=== PATIENT | male | born 1980 | race Caucasian/White ===

== ENCOUNTER → 2017-08-12 16:32 | Emergency (ER) | payer SELFPAY ==
[~2017-08-12 16:32] MED LIST: Potassium Chlor TAB* 20 MEQ TAB.ER PO ONE; Sulfamethox/Trimethoprim DS 800/160* TAB PO ONE
[2017-08-12 20:07] LABS: Hematocrit 42 % (42-52); Hemoglobin 14.9 g/dl (14.0-18.0); Mean Corpuscular HGB Conc 35 g/dl (31-36); Mean Corpuscular Hemoglobin 32 pg (27-31); Mean Corpuscular Volume 92 fL (80-94); Mean Platelet Volume 8 um3 (7.4-10.4); Red Cell Distribution Width 15 % (10.5-15); White Blood Count 13.4 10^3/ul (3.5-10.8)
[2017-08-12 20:24] LABS: Albumin 3.8 g/dL (3.2-5.2); BUN/Creatinine Ratio 14.9 (8-20); Calcium 9.1 mg/dL (8.6-10.3); EGFR Non-African American 98.7 (>60); Globulin 3.6 g/dL (2-4); Potassium 3.3 mmol/L (3.5-5.0); Total Bilirubin 0.6 mg/dL (0.2-1.0); Total Protein 7.4 g/dL (6.4-8.9)
--- NOTE | 2017-08-12 20:47 | RAD ---
HISTORY: Right greater than left lower leg edema TECHNIQUE: Multiple transverse and longitudinal ultrasound images were obtained of the veins of the bilateral lower extremities using grayscale, color Doppler, and spectral Doppler imaging with and without compression and with augmentation. FINDINGS: VEINS: The common femoral vein, deep femoral vein, femoral vein and popliteal vein are compressible throughout their course, with normal flow on color Doppler imaging and normal response to augmentation on spectral Doppler imaging. SOFT TISSUES: Grossly normal. No large popliteal fossa cyst was identified. IMPRESSION: No sonographic evidence of deep vein thrombosis.
[2017-08-12 21:34] VITALS: BP 141/71
--- NOTE | 2017-08-29 22:45 | ED ---
Jorje Champagne Angela, scribed for Robert Pendleton MD on 08/12/17 at 1912 . Lower Extremity - HPI Summary HPI Summary: This pt is a 37 y/o male presenting to [facility] c/o bilateral lower extremity edema and pain x3 weeks. Pt reports he was at his PCP's office and was told to come to the ED. Pt is a current smoker. PMHx: COPD, HTN. He states he had an US of LE done recently. Pt's US results from 08/02/2017 is negative for DVT. PSHx: right knee surgery (12 years ago). - History of Current Complaint Chief Complaint: EDExtremityLower Stated Complaint: BOTH LEGS SWOLLEN Time Seen by Provider: 08/12/17 19:07 Hx Obtained From: Patient Onset of Pain: Days - 3 weeks Onset/Duration: Weeks - 3 Pain Intensity: 8 Timing: Lasting Weeks Location: Is Discrete @ - bilateral legs Associated Signs And Symptoms: Positive: Swelling, Redness - Allergies/Home Medications Allergies/Adverse Reactions: Allergies Allergy/AdvReac Type Severity Reaction Status Date / Time PCN Allergy Unknown Unknown Uncoded 08/12/17 16:38 Reaction Details PMH/Surg Hx/FS Hx/Imm Hx Endocrine/Hematology History: Denies: Hx Diabetes Cardiovascular History: Reports: Hx Hypertension Denies: Hx Pacemaker/ICD Respiratory History: Reports: Hx Chronic Obstructive Pulmonary Disease (COPD) Sensory History: Denies: Hx Hearing Aid Neurological History: Denies: Other Neuro Impairments/Disorders Psychiatric History: Denies: Hx Panic Disorder - Surgical History Surgery Procedure, Year, and Place: RIGHT KNEE ACL RECONSTRUCTION . TONSILS. EAR TUBES Infectious Disease History: No Infectious Disease History: Denies: Traveled Outside the [place] in Last 30 Days - Family History Known Family History: Negative: Cardiac Disease, Hypertension, Diabetes - Social History Alcohol Use: None Hx Substance Use: No Substance Use Type: Reports: None Smoking Status (MU): Current Every Day Smoker Review of Systems Negative: Fever, Chills Eyes: Negative ENT: Negative Cardiovascular: Negative Respiratory: Negative Positive: Edema - bilateral legs, Other - pain in bilateral legs Neurological: Negative All Other Systems Reviewed And Are Negative: Yes Physical Exam Triage Information Reviewed: Yes Vital Signs On Initial Exam: Initial Vitals Temp Pulse Resp BP Pulse Ox 97.6 F 114 18 128/68 96 08/12/17 16:34 10/06/17 16:34 08/12/17 16:34 08/12/17 16:34 08/12/17 16:34 Vital Signs Reviewed: Yes Appearance: Positive: Well-Appearing, Obese Skin: Positive: Other - cellulitis both lower extremities Eyes: Positive: EOMI ENT: Positive: Pharynx normal Neck: Positive: Supple, Nontender Respiratory/Lung Sounds: Positive: Clear to Auscultation, Breath Sounds Present Cardiovascular: Positive: RRR, Pulses are Symmetrical in both Upper and Lower Extremities. Negative: Murmur Abdomen Description: Positive: Other: - obese Musculoskeletal: Positive: Edema Left - lower extremity, Edema Right - lower extremity Neurological: Positive: Sensory/Motor Intact, Alert, Oriented to Person Place, Time, CN Intact II-III Psychiatric: Positive: Normal - [place] Coma Scale Best Eye Response: 4 - Spontaneous Best Motor Response: 6 - Obeys Commands Best Verbal Response: 5 - Oriented Diagnostics - Vital Signs Vital Signs Temp Pulse Resp BP Pulse Ox 08/12/17 18:14 97.9 F 112 16 112/59 96 08/12/17 16:34 97.6 F 114 18 128/68 96 - Laboratory Result Diagrams: 08/12/17 19:52 08/12/17 19:52 Lab Statement: Any lab studies that have been ordered have been reviewed, and results considered in the medical decision making process. - Ultrasound No standard instances Ultrasound Interpretation: No Acute Changes Ultrasound Interpretation Completed By: Radiologist - Bilateral LE US: Pending official interpretation from radiologist. See [facility]. Lower Extremity Course/Dx - Course Assessment/Plan: Pt is a 37 y/o male who presents with bilateral lower extremity edema and pain x3 weeks. Bloodwork and bilateral LE US were obtained. - Diagnoses Provider Diagnoses: Cellulitis Discharge - Discharge Plan Condition: Good Disposition: HOME Prescriptions: Sulfamethox/Trimethoprim DS* [Bactrim DS 800/160 TAB*] 1 tab PO BID #20 tab Patient Education Materials: Cellulitis (ED), Leg Edema (ED) Referrals: Bharat Arias MD [Primary Care Provider] - 2 Days The documentation as recorded by the Jorje graf Angela accurately reflects the service I personally performed and the decisions made by , Robert Pendleton MD.
== END | disposition home or self-care (01) ==
LOC: ED 16:32
DX: L03.90 Cellulitis, unspecified (principal); R22.43 Localized swelling, mass and lump, lower limb, bilateral
CPT/HCPCS: 36415; 80053; 83605; 85025; 85610; 87040; 93970; 99282; A9270-GY

== ENCOUNTER 2017-11-21 21:44 | Emergency (ER) | payer OTHER ==
[2017-11-21] MEDS ORDERED: NS 0.9% 1000 ML* 1,000 ML IV ONE (22:07)
[2017-11-21] MEDS ORDERED: Ondansetron INJ* 2 MG/ML VIAL IV ONE (22:10)
[2017-11-21] MEDS ORDERED: Meclizine TAB* 12.5 MG PO ONE (22:10)
[2017-11-21 22:54] LABS: ABS Basophils 0.1 10^3/ul (0-0.2); ABS Eosinophils 0.1 10^3/ul (0-0.6); ABS Lymphocytes 1.6 10^3/ul (1.0-4.8); ABS Monocytes 0.8 10^3/ul (0-0.8); ABS Neutrophils 9.4 10^3/ul (1.5-7.7); ABS Nucleated RBC 0 10^3/ul; Eosinophil % 0.7 % (0-6); Hematocrit 44 % (42-52); Hemoglobin 14.9 g/dl (14.0-18.0); Lymphocyte % 13.2 % (25-47); Mean Corpuscular HGB Conc 34 g/dl (31-36); Mean Corpuscular Hemoglobin 31 pg (27-31); Mean Corpuscular Volume 91 fL (80-94); Mean Platelet Volume 8 um3 (7.4-10.4); Nucleated Red Blood Cells % 0; Platelet Count 306 10^3/ul (150-450); Red Blood Count 4.78 10^6/ul (4.0-5.4); Red Cell Distribution Width 15 % (10.5-15)
--- NOTE | 2017-11-21 23:01 | RAD ---
INDICATION: Dizziness COMPARISON: None. TECHNIQUE: Contiguous axial sections of the brain were obtained from the skull base to the vertex without contrast. FINDINGS: The ventricles, cisterns and sulci are within normal limits. The lpoez-white matter differentiation is adequately maintained and there is no sulcal effacement. No significant focal abnormality or mass effect is present. There is no evidence for intracranial hemorrhage. No significant focal osseous abnormality is present. The visualized portion of the paranasal sinuses appear clear. The mastoid air cells are well aerated bilaterally. IMPRESSION: Normal CT of the brain.
[2017-11-21 23:02] LABS: INR 0.95 (0.77-1.02)
[2017-11-21 23:12] LABS: EGFR Non-African American 93.7 (>60)
[2017-11-22] VITALS: BP 139/71
--- NOTE | 2017-11-22 06:02 | ED ---
Stefania Champagne Nilda, scribed for Silvino Hunter MD on 11/21/17 at 2209 . Dizziness - HPI Summary HPI Summary: This patient is a 37 year old M BIBA accompanied by family with a chief complaint of constant dizziness since earlier today. Pt was at rest when symptoms occurred. Symptoms aggravated by movement and alleviated by rest. Patient reports lightheadedness (room-spinning), near syncope, chills, blurry vision, mild SOB, and nausea. Patient denies fever. Pt is on medications for COPD (inhaler) and HTN (Lorsartan, currently non-compliant due to billing issues). - History Of Current Complaint Chief Complaint: EDShortnessOfBreath Stated Complaint: SOB Time Seen by Provider: 11/21/17 21:57 Hx Obtained From: Patient Onset/Duration: Still Present Timing: Constant Character: Room Spinning, Lightheaded, Dizzy Aggravating Factor(s): Exertion Alleviating Factor(s): Rest Associated Signs And Symptoms: Positive: Other: - Patient reports lightheadedness (room-spinning), near syncope, chills, blurry vision, mild SOB, and nausea. Patient denies fever. - Allergies/Home Medications Allergies/Adverse Reactions: Allergies Allergy/AdvReac Type Severity Reaction Status Date / Time PCN Allergy Unknown Unknown Uncoded 08/12/17 16:38 Reaction Details PMH/Surg Hx/FS Hx/Imm Hx Endocrine/Hematology History: Denies: Hx Diabetes Cardiovascular History: Reports: Hx Hypertension Denies: Hx Pacemaker/ICD Respiratory History: Reports: Hx Chronic Obstructive Pulmonary Disease (COPD) Sensory History: Denies: Hx Hearing Aid Neurological History: Denies: Other Neuro Impairments/Disorders Psychiatric History: Denies: Hx Panic Disorder - Surgical History Surgery Procedure, Year, and Place: RIGHT KNEE ACL RECONSTRUCTION . TONSILS. EAR TUBES - Family History Known Family History: Positive: Cardiac Disease, Hypertension, Other - HLD Negative: Diabetes - Social History Alcohol Use: None Hx Substance Use: No Substance Use Type: Reports: None Smoking Status (MU): Current Every Day Smoker Review of Systems Positive: Chills. Negative: Fever Positive: Blurred Vision Positive: Shortness Of Breath Positive: Nausea Neurological: Other - dizziness, lightheaded (room spinning) Positive: Syncope - near All Other Systems Reviewed And Are Negative: Yes Physical Exam - Summary Physical Exam Summary: VITAL SIGNS: Reviewed. GENERAL: Patient is a morbidly obese male who is lying comfortable in the stretcher. Patient is not in any acute respiratory distress. HEAD AND FACE: No signs of trauma. No ecchymosis, hematomas or skull depressions. No sinus tenderness. EYES: PERRLA, EOMI x 2, No injected conjunctiva, no nystagmus. EARS: Hearing grossly intact. Ear canals and tympanic membranes are within normal limits. MOUTH: Oropharynx within normal limits. NECK: Supple, trachea is midline, no adenopathy, no JVD, no carotid bruit, no c- spine tenderness, neck with full ROM. CHEST: Symmetric, no tenderness at palpation LUNGS: Clear to auscultation bilaterally. No wheezing or crackles. CVS: Regular rate and rhythm, S1 and S2 present, no murmurs or gallops appreciated. ABDOMEN: Soft, non-tender. No signs of distention. No rebound no guarding, and no masses palpated. Bowel sounds are normal. EXTREMITIES: FROM in all major joints, no edema, no cyanosis or clubbing. NEURO: Alert and oriented x 3. No acute neurological deficits. Speech is normal and follows commands. Pt has normal coordination, no dysmetria SKIN: Dry and warm Triage Information Reviewed: Yes Vital Signs On Initial Exam: Initial Vitals Temp Pulse Resp BP Pulse Ox 98.7 F 106 20 145/78 95 11/21/17 22:08 11/21/17 22:08 11/21/17 22:08 11/21/17 22:08 11/21/17 22:08 Vital Signs Reviewed: Yes Diagnostics - Vital Signs Vital Signs Temp Pulse Resp BP Pulse Ox 11/21/17 23:57 36.7 C 96 18 139/71 96 11/21/17 23:00 96 23 92 11/21/17 22:52 95 11/21/17 22:08 37.1 C 106 20 145/78 95 11/21/17 22:03 24 145/78 - Laboratory Lab Results: Lab Results 11/21/17 11/21/17 11/21/17 Range/Units 22:40 22:40 22:40 WBC 12.0 H (3.5-10.8) 10^3/ul RBC 4.78 (4.0-5.4) 10^6/ul Hgb 14.9 (14.0-18.0) g/dl Hct 44 (42-52) % MCV 91 (80-94) fL MCH 31 (27-31) pg MCHC 34 (31-36) g/dl RDW 15 (10.5-15) % Plt Count 306 (150-450) 10^3/ul MPV 8 (7.4-10.4) um3 Neut % (Auto) 78.4 (38-83) % Lymph % (Auto) 13.2 L (25-47) % Desha % (Auto) 6.6 (1-9) % Eos % (Auto) 0.7 (0-6) % Baso % (Auto) 1.1 (0-2) % Absolute Neuts (auto) 9.4 H (1.5-7.7) 10^3/ul Absolute Lymphs (auto) 1.6 (1.0-4.8) 10^3/ul Absolute Monos (auto) 0.8 (0-0.8) 10^3/ul Absolute Eos (auto) 0.1 (0-0.6) 10^3/ul Absolute Basos (auto) 0.1 (0-0.2) 10^3/ul Absolute Nucleated RBC 0 10^3/ul Nucleated RBC % 0 INR (Anticoag Therapy) 0.95 (0.77-1.02) APTT 30.2 (26.0-36.3) seconds Sodium 134 (133-145) mmol/L Potassium 3.8 (3.5-5.0) mmol/L Chloride 100 L (101-111) mmol/L Carbon Dioxide 28 (22-32) mmol/L Anion Gap 6 (2-11) mmol/L BUN 9 (6-24) mg/dL Creatinine 0.91 (0.67-1.17) mg/dL Est GFR ( Amer) 120.6 (>60) Est GFR (Non-Af Amer) 93.7 (>60) BUN/Creatinine Ratio 9.9 (8-20) Glucose 145 H (70-100) mg/dL Calcium 9.3 (8.6-10.3) mg/dL Magnesium 1.9 (1.9-2.7) mg/dL Total Bilirubin 0.60 (0.2-1.0) mg/dL AST 31 (13-39) U/L ALT 45 (7-52) U/L Alkaline Phosphatase 65 (34-104) U/L Total Protein 7.1 (6.4-8.9) g/dL Albumin 3.7 (3.2-5.2) g/dL Globulin 3.4 (2-4) g/dL Albumin/Globulin Ratio 1.1 (1-3) Result Diagrams: 11/21/17 22:40 11/21/17 22:40 Lab Statement: Any lab studies that have been ordered have been reviewed, and results considered in the medical decision making process. - CT Brain CT Interpretation Completed By: Radiologist - Normal CT Brain. Dr. Hunter has reviewed this report. - EKG 2234 Cardiac Rate: Other Rate EKG Interpretation: Sinus arrhythmia, 86 bpm. Nml axis. Nml interval. No ischemic changes. Re-Evaluation - Re-Evaluation First Eval Re-Evaluation Time: 23:35 Comment: Pt feels better. He is ambulating well, steady gait. Reviewed labs and imaging. Pt agreeable to D/C. Dizzy Course/Dx - Course Assessment/Plan: This patient is a 37 year old M BIBA accompanied by family with a chief complaint of constant dizziness and lightheadedness (room-spinning ) since earlier today. Pt feels better. Pt ambulated with no coordination issues , steady gait. Imaging was unremarkable and reviewed results with pt. Pt given prescription for Meclizine. Pt is stable and will be D/C with Dx of benign positional vertigo. - Diagnoses Provider Diagnoses: Benign positional vertigo Discharge - Discharge Plan Condition: Stable Disposition: HOME Prescriptions: Meclizine HCl [Meclizine 25] 25 mg PO TID PRN #20 tab PRN Reason: Dizziness Patient Education Materials: Vertigo (ED), Benign Paroxysmal Positional Vertigo (ED) Referrals: Bharat Arias MD [Primary Care Provider] - 3 Days Additional Instructions: RETURN TO EMERGENCY DEPARTMENT FOR CHANGING OR WORSENING SYMPTOMS The documentation as recorded by the Stefania graf Nilda accurately reflects the service I personally performed and the decisions made by Dale tejada Abdul, MD.
== END 2017-11-21 23:57 | disposition home or self-care (01) ==
LOC: ED 21:44
DX: H81.10 Benign paroxysmal vertigo, unspecified ear (principal); R06.02 Shortness of breath; R05 Cough; R68.83 Chills (without fever); H53.8 Other visual disturbances; R11.0 Nausea
CPT/HCPCS: 36415; 70450; 80053; 83735; 85025; 85610; 85730; 93005; 96374; 99283; A9270-GY; J2405

== ENCOUNTER 2018-02-24 11:29 | Emergency (ER) | payer OTHER ==
--- NOTE | 2018-02-24 12:42 | RAD ---
INDICATION: Left shoulder pain COMPARISON: None TECHNIQUE: Routine frontal, Y and axial views were obtained. FINDINGS: There is minor a.c. and glenohumeral osteoarthritis. There are no acute bony findings. The soft tissues are normal. IMPRESSION: MINOR A.C. AND GLENOHUMERAL OSTEOARTHRITIS
[2018-02-24 13:12] VITALS: BP 145/90
--- NOTE | 2018-02-24 14:08 | ED ---
Upper Extremity Pain - HPI Summary HPI Summary: Patient is an otherwise healthy 38-year-old male presenting to the ED with left shoulder pain 5 days. He states he did not injure the area to his knowledge. Pain is discretely located to the acromioclavicular joint and to the posterior shoulder with radiation down the posterior left upper extremity. Denies any numbness or tingling. Denies any color or temperature changes. He has never had anything like this before. He is left-hand dominant. 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 He has not tried to take anything [id number] for pain relief and has not used ice or heat. He denies any other complaints at this time. Range of motion is intact. - History of Current Complaint Chief Complaint: EDExtremityUpper Stated Complaint: LT SHOULDER PAIN-2 DAYS Time Seen by Provider: 02/24/18 11:41 Hx Obtained From: Patient Mechanism Of Injury: Unknown Onset/Duration: Started Days Ago Timing: Constant Severity Initially: Moderate Severity Currently: Moderate Pain Location: Arm Character: Aching Alleviating Factor(s): Nothing Associated Signs & Symptoms: Positive: Negative Related History: Dominant Hand Left - Risk Factors Non-Orthopedic Risk Factor: Negative DVT Risk Factors: Negative Septic Arthritis Risk Factor: Negative Compartment Syndrome Risk Factors: Pain - Allergies/Home Medications Allergies/Adverse Reactions: Allergies Allergy/AdvReac Type Severity Reaction Status Date / Time PCN Allergy Unknown Unknown Uncoded 02/24/18 11:37 Reaction Details Home Medications: Home Medications NK [No Home Medications Reported] 02/24/18 [History Confirmed 02/24/18] PMH/Surg Hx/FS Hx/Imm Hx Previously Healthy: Yes Endocrine/Hematology History: Denies: Hx Diabetes Cardiovascular History: Reports: Hx Hypertension - on meds Denies: Hx Pacemaker/ICD Respiratory History: Reports: Hx Chronic Obstructive Pulmonary Disease (COPD), Hx Sleep Apnea Denies: Other Respiratory Problems/Disorders Musculoskeletal History: Reports: Hx Arthritis - not diagnosed, Other Musculoskeletal History - spinal stenosis Sensory History: Denies: Hx Contacts or Glasses, Hx Hearing Aid Opthamlomology History: Denies: Hx Contacts or Glasses Neurological History: Reports: Hx Headaches - r/t htn, Other Neuro Impairments/ Disorders - spinal stenosis Psychiatric History: Denies: Hx Panic Disorder - Surgical History Surgery Procedure, Year, and Place: RIGHT KNEE ACL RECONSTRUCTION . TONSILS. EAR TUBES Hx Anesthesia Reactions: No - Immunization History Hx Pertussis Vaccination: No Immunizations Up to Date: Unable to Obtain/Confirm Infectious Disease History: No Infectious Disease History: Denies: Traveled Outside the [place] in Last 30 Days - Family History Known Family History: Positive: Cardiac Disease, Hypertension, Other - HLD Negative: Diabetes - Social History Occupation: Unemployed Lives: Alone Alcohol Use: None Hx Substance Use: No Substance Use Type: Reports: Marijuana Substance Use Comment - Amount & Last Used: at times Hx Tobacco Use: Yes Smoking Status (MU): Former Smoker Do You Chew or Dip Tobacco: No Amount Used/How Often: 1.5 packs a day for 15 yrs Have You Smoked in the Last Year: Yes Review of Systems Constitutional: Negative Negative: Fever, Chills, Fatigue, Skin Diaphoresis Negative: Photophobia, Blurred Vision Negative: Palpitations, Chest Pain Negative: Shortness Of Breath, Cough Negative: Abdominal Pain, Vomiting, Diarrhea, Nausea Genitourinary: Negative Positive: no symptoms reported, see HPI Positive: Arthralgia, Myalgia Skin: Negative Psychological: Normal All Other Systems Reviewed And Are Negative: Yes Physical Exam Triage Information Reviewed: Yes Vital Signs On Initial Exam: Initial Vitals Temp Pulse Resp BP Pulse Ox 98.2 F 109 20 159/114 96 02/24/18 11:38 02/24/18 11:38 02/24/18 11:38 02/24/18 11:38 02/24/18 11:38 Vital Signs Reviewed: Yes Appearance: Positive: Well-Appearing, Well-Nourished Skin: Positive: Warm, Skin Color Reflects Adequate Perfusion Head/Face: Positive: Normal Head/Face Inspection Eyes: Positive: EOMI, Conjunctiva Clear Neck: Positive: Supple, No Lymphadenopathy Respiratory/Lung Sounds: Positive: Clear to Auscultation, Breath Sounds Present Cardiovascular: Positive: RRR, Pulses are Symmetrical in both Upper and Lower Extremities Musculoskeletal: Positive: Pain @ - AC joint pain with movement, better with rest Neurological: Positive: Speech Normal Psychiatric: Positive: Affect/Mood Appropriate AVPU Assessment: Alert Diagnostics - Vital Signs Vital Signs Temp Pulse Resp BP Pulse Ox 02/24/18 13:09 97.5 F 96 18 145/90 98 02/24/18 11:38 98.2 F 109 20 159/114 96 - Laboratory Lab Statement: Any lab studies that have been ordered have been reviewed, and results considered in the medical decision making process. Course/Dx - Course Course Of Treatment: During the course of treatment, the patient's evaluated for left shoulder injury. Images of the left shoulder obtained which shows: FINDINGS: There is minor a.c. and glenohumeral osteoarthritis. There are no acute bony. findings. The soft tissues are normal. IMPRESSION: MINOR A.C. AND GLENOHUMERAL OSTEOARTHRITIS. Patient is made aware of these results. Due to no obvious - Diagnoses Provider Diagnoses: Tendinitis, Osteoarthritis, shoulder Discharge - Sign-Out/Discharge Documenting (check all that apply): Discharge - Discharge Plan Condition: Stable Disposition: HOME Patient Education Materials: Osteoarthritis (ED), Tendinitis (ED) Referrals: Bharat Arias MD [Primary Care Provider] - Additional Instructions: Please follow up with Dr. Ennis Moist heat to the area ibuprofen 600 mg 3 times daily Stretch the shoulder as much as possible - Billing Disposition and Condition Condition: STABLE Disposition: HOME
== END 2018-02-24 13:09 | disposition home or self-care (01) ==
LOC: ED 11:29
DX: M75.92 Shoulder lesion, unspecified, left shoulder (principal); I10 Essential (primary) hypertension; J44.9 Chronic obstructive pulmonary disease, unspecified; E78.5 Hyperlipidemia, unspecified; Z87.891 Personal history of nicotine dependence; M19.012 Primary osteoarthritis, left shoulder
CPT/HCPCS: 99281

== ENCOUNTER 2018-02-28 09:27 | Day surgery (SDC) | payer OTHER ==
--- NOTE | 2018-02-23 11:03 | HP ---
AMENDED REPORT NOW INCLUDES COSIGNER DESIGNATION - ESIGNED BEFORE ADJUSTMENT PREOPERATIVE HISTORY AND PHYSICAL: DATE OF ADMISSION/SURGERY: 02/28/18 DATE OF OFFICE VISIT/ENCOUNTER: 02/22/18 ATTENDING SURGEON: Vania Lynn MD * (DICTATED BY KERLINE EAGLE) PROCEDURE: Left wrist carpal tunnel release. CHIEF COMPLAINT: Bilateral hand numbness and tingling, left worse than right. HISTORY OF PRESENT ILLNESS: This is a 38-year-old male, who complains of symptoms including numbness, tingling, and pain in his bilateral hands that has been ongoing for over 5 years. He thinks it may even be over the past 10 years that he has had symptoms. Symptoms have been progressively worsening and bother him mostly during the day. On rare occasion he feels that the symptoms awaken him in the middle of the night. He has to shake his hand out to get the numbness and tingling to go away. He denies injury to either hand or wrist. He has tried some wrist bracing in the past, but has not been very helpful. He does not complain of any cervical spine pain. He did have a nerve conduction/ EMG performed, which showed bilateral carpal tunnel syndrome. He is interested in pursuing surgical intervention at this time and would like to proceed with a left wrist carpal tunnel release. He is likely going to then have a right wrist carpal tunnel release. PAST MEDICAL HISTORY: 1. Hypertension. 2. COPD/emphysema. 3. Spinal stenosis. 4. Obesity. 5. Sleep apnea, with CPAP. 6. Hard of hearing. PAST SURGICAL HISTORY: 1. Right knee ACL reconstruction in 1998. 2. Tonsillectomy and adenoidectomy in 1995. CURRENT MEDICATIONS: 1. Chlorthalidone 25 mg daily. 2. Clotrimazole 1% apply twice daily. 3. Dulera 200/5 mcg/act 2 puffs twice a day. 4. Losartan potassium 50 mg daily. 5. ProAir HFA 108 (90 base) mcg/act 2 puffs q.4 hours p.r.n. ALLERGIES: PENICILLIN causes hives. FAMILY MEDICAL HISTORY: Diabetes and heart disease. 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 He is a former smoker. He quit 3 months ago. Prior to that, he smoked a pack and half per day for 15 years. He does smoke marijuana on occasion and does not drink alcohol. REVIEW OF SYSTEMS: General: Positive for weakness and fatigue, negative for fevers, chills, or night sweats. No known anesthesia problems in the past. HEENT: Negative for headache, lightheadedness, or syncopal episodes. Integumentary: Negative for abrasion, lesions, or open wounds. Cardiothoracic: Positive for hypertension, negative for chest pain, palpitations, or edema. Pulmonary: Positive for shortness of breath with exertion. Negative for chronic cough. Positive for COPD. GI: Negative for nausea, vomiting, diarrhea , constipation, and GERD. : Negative for nocturia, urinary frequency, urgency, history of UTIs, or kidney problems. Musculoskeletal: Positive for current complaint. Positive for chronic back pain. Neurological: Negative for paresthesias, numbness, history of seizure, stroke, or epilepsy. Endocrine : Negative for diabetes and thyroid issues. Hematologic: Negative for easy bruising, anemia, excessive bleeding, history of DVT. Infectious Disease: Negative for history of MRSA, hepatitis C, HIV. PHYSICAL EXAMINATION GENERAL: Well-developed, well-nourished, 38-year-old male, in no acute distress. VITAL SIGNS: Height 5 feet 10 inches, weight 368 pounds, pulse rate 78, blood pressure 160/90. HEENT: Normocephalic, atraumatic. Pupils are equal, round, and reactive to light and accommodation. Extraocular movements are intact. Throat is clear. NECK: Supple. No palpable lymph nodes. PULMONARY: Lungs are clear to auscultation bilaterally. No wheezes, rales, or rhonchi. CARDIOVASCULAR: Regular rate and rhythm. S1, S2. No murmurs, rubs, or gallops. No edema. ABDOMEN: Positive bowel sounds. Soft and nontender. NEUROLOGIC: Alert and oriented x3. Cranial nerves II through XII are intact. MUSCULOSKELETAL: On exam of bilateral hands, there is no visible thenar wasting. He has mild weakness bilaterally with thumb abduction. He has a negative Tinel's sign at the carpal tunnel and at the ulnar nerve at the elbow. He has a positive Phalen's sign bilaterally. He has good range of motion of his wrists and fingers and skin is intact. DIAGNOSTIC STUDIES: EMG/nerve conduction study shows bilateral incipient carpal tunnel syndrome. PLAN: The patient is scheduled to undergo left wrist carpal tunnel release with Dr. Lynn on 02/28/18. He will follow up 10 days postop for suture removal. A prescription for Ultracet e-scribed to the patient's pharmacy for postoperative pain management. KERLINE EAGLE [id number]/[facility] #: [id number] MTDDomenic
[~2018-02-28 09:27] MED LIST changes: +Buffered Lidocaine 0.9% SYRIN* 5 ML/SYR SYRINGE INTRADERM ONE; -Potassium Chlor TAB* 20 MEQ TAB.ER PO ONE; -Sulfamethox/Trimethoprim DS 800/160* TAB PO ONE
[2018-02-28] MEDS ORDERED: Midazolam* 1 MG/ML 2 ML VIAL (2 MG) ONE (10:01)
[2018-02-28] MEDS ORDERED: Acetaminophen TAB* 325 MG PO PRN (10:08)
[2018-02-28] MEDS ORDERED: Naloxone* 0.4 MG/ML 1 ML VIAL IV PRN (10:08)
[2018-02-28] MEDS ORDERED: Ondansetron INJ* 2 MG/ML VIAL IV PRN (10:08)
[2018-02-28] MEDS ORDERED: Lidocaine 1% INJ* 10 MG/ML 30 ML SDV ONE (10:31)
[2018-02-28] MEDS ORDERED: Lidocaine 2% PF * 5 ML VIAL ONE (10:43)
[2018-02-28] MEDS ORDERED: Propofol* 10 MG/ML 20 ML BTL IV PUSH ONE (10:43)
[2018-02-28] MEDS ORDERED: Ketorolac INJ* 30 MG/ML 1 ML VIAL ONE (10:43)
[2018-02-28 11:09] VITALS: BP 155/78
--- NOTE | 2018-02-28 12:23 | OP ---
CC: Dr. Lynn* OPERATIVE REPORT: DATE OF OPERATION: 02/28/18 - KAYCEE DATE OF : 80 SURGEON: Vania Lynn MD WELL TREATMENT OFFSIDER: KERLINE Yuen ANESTHESIOLOGIST: Garcia Castro MD ANESTHESIA: Local MAC. PRE-OP DIAGNOSIS: Left carpal tunnel syndrome. POST-OP DIAGNOSIS: Left carpal tunnel syndrome. OPERATIVE PROCEDURE: Left carpal tunnel release. INDICATIONS: eNil is a 38-year-old male with numbness and tingling in the median nerve distribution of his left hand. He presents for left carpal tunnel release. ESTIMATED BLOOD LOSS: Zero. TOURNIQUET TIME: Five minutes. DESCRIPTION OF PROCEDURE: The patient was brought to the operating room, was given a sedation anesthetic, and a local infiltration of 10 cc of 1% plain lidocaine in the palm of his left hand. The skin of his left hand and forearm was prepped and draped in the usual sterile fashion. The hand and forearm were exsanguinated and the tourniquet elevated to 250 mmHg. A longitudinal incision was made at the palm of the hand in line with the ring finger. We dissected through the subcutaneous tissue sharply down to the transverse carpal ligament. The ligament was divided sharply with the knife and then more proximally with the scissors. The nerve was dissected free from the surrounding tissue and there was an area of moderate compression in the mid portion of the ligament. The wound was irrigated and the skin edges were reapproximated with 4-0 nylon suture. The wound was dressed with Xeroform, 4x4, Webril, and an Sergey wrap. The patient tolerated the procedure well and was brought to the recovery room in good condition. [id number]/[facility] #: [id number] [facility]
== END 2018-02-28 11:42 | disposition home or self-care (01) ==
LOC: OREAST 09:27
PROVIDERS: ATTEND Orthopaedic Surgery
DX: G56.02 Carpal tunnel syndrome, left upper limb (principal); I10 Essential (primary) hypertension; J43.9 Emphysema, unspecified; G47.33 Obstructive sleep apnea (adult) (pediatric); E66.9 Obesity, unspecified; Z87.891 Personal history of nicotine dependence
CPT/HCPCS: J1885; J2250; J2704

== ENCOUNTER 2018-03-31 23:04 | Emergency (ER) | payer OTHER ==
[2018-04-01 01:07] LABS: ABS Basophils 0.1 10^3/ul (0-0.2); ABS Eosinophils 0 10^3/ul (0-0.6); ABS Lymphocytes 1.9 10^3/ul (1.0-4.8); ABS Monocytes 0.6 10^3/ul (0-0.8); ABS Neutrophils 8.8 10^3/ul (1.5-7.7); ABS Nucleated RBC 0 10^3/ul; Eosinophil % 0.4 % (0-6); Hematocrit 42 % (42-52); Hemoglobin 14.5 g/dl (14.0-18.0); Lymphocyte % 16.4 % (25-47); Mean Corpuscular HGB Conc 34 g/dl (31-36); Mean Corpuscular Hemoglobin 31 pg (27-31); Mean Corpuscular Volume 91 fL (80-94); Mean Platelet Volume 7.9 um3 (7.4-10.4); Nucleated Red Blood Cells % 0; Platelet Count 339 10^3/ul (150-450); Red Blood Count 4.69 10^6/ul (4.0-5.4); Red Cell Distribution Width 14 % (10.5-15); White Blood Count 11.5 10^3/ul (3.5-10.8)
[2018-04-01 01:23] LABS: INR 0.97 (0.77-1.02)
[2018-04-01 01:25] LABS: EGFR Non-African American 88.7 (>60)
[2018-04-01 02:26] LABS: Urine Appearance Clear; Urine Blood Negative (Negative); Urine Color Yellow; Urine Ketones Negative (Negative); Urine Protein Negative (Negative); Urine Specific Gravity 1.014 (1.010-1.030); Urine Urobilinogen Negative (Negative)
--- NOTE | 2018-04-01 03:07 | ED ---
HPI Chest Pain - HPI Summary HPI Summary: Patient presents with abrupt onset of sternal chest pain earlier this evening. He describes this as a brief sharp pain that led into chest tightness and throat tightness when he tried to drink water. He also admits he feels hot and sweaty as well as a little dizzy. Admits this is happened in the past and he was diagnosed with vertigo. He does not recall much of his follow-up he was given meclizine. He tried this [facility] and reports it is not helped his symptoms of dizziness at all. He also took an aspirin 325mg however he did not have CP at the time and continues to no longer have chest pain. Denies shortness of breath, nausea, vomiting, arm pain/numbness/ tingling. He also admits to an intermittent history of GERD but this does not feel the same. He does not take any routine antacid or PPI. He does have some mild epigastric pain. Declines trying a GI cocktail for his symptoms. Furthermore he admits to a history of CHF. Believes he was treated with chlorthalidone by his PCP and he has reduced his salt intake. Admits he gets lower extremity edema at times. Again denies shortness of breath or difficulty breathing. Furthermore he denies cough, fever, chills, upper respiratory symptoms, nausea, vomiting, diarrhea, change in urinary habits. No head or neck injury. Takes a medication for his blood pressure that he does not recall. Has sleep apnea and has been using a CPAP machine over the past 2 months however he reports is not been working well. He is very tired here tonight from lack of quality sleep. - History of Current Complaint Chief Complaint: EDChestPainROMI Time Seen by Provider: 03/31/18 23:58 Hx Obtained From: Patient Pain Intensity: 0 - Allergy/Home Medications Allergies/Adverse Reactions: Allergies Allergy/AdvReac Type Severity Reaction Status Date / Time PCN Allergy Unknown Unknown Uncoded 03/31/18 23:17 Reaction Details Home Medications: Home Medications Albuterol HFA INHALER* 03/31/18 [History] Meclizine TAB* 03/31/18 [History] PMH/Surg Hx/FS Hx/Imm Hx Previously Healthy: Yes Endocrine/Hematology History: Denies: Hx Anticoagulant Therapy, Hx Blood Disorders, Hx Diabetes, Hx Thyroid Disease, Hx Anemia, Hx Unexplained Bleeding, Hx Coagulopothy, Autoimmune Disease Cardiovascular History: Reports: Hx Congestive Heart Failure - h/o - controlled w/ med (no longer takes) red salt intake, Hx Hypertension - on meds PT. STATES CONTROLLED Denies: Hx Pacemaker/ICD Respiratory History: Reports: Hx Chronic Obstructive Pulmonary Disease (COPD), Hx Sleep Apnea, Other Respiratory Problems/Disorders - QUIT SMOKING 12/13/17 GI History: Reports: Hx Gastroesophageal Reflux Disease - controlled w/o meds per pt Denies: Hx Hiatal Hernia, Hx Ulcer Musculoskeletal History: Reports: Hx Arthritis - GENERALIZED SHOULDER, Other Musculoskeletal History - spinal stenosis Sensory History: Denies: Hx Contacts or Glasses, Hx Hearing Aid Opthamlomology History: Denies: Hx Contacts or Glasses Neurological History: Reports: Hx Headaches - r/t HYPERTENSION, Other Neuro Impairments/Disorders - stenosis, vertigo Psychiatric History: Denies: Hx Panic Disorder - Surgical History Surgery Procedure, Year, and Place: RIGHT KNEE ACL RECONSTRUCTION . TONSILS 1995. EAR TUBES 2013. LEFT WRIST CARPAL TUNNEL RE[place] [facility] [place] Hx Anesthesia Reactions: No Infectious Disease History: No Infectious Disease History: Denies: Traveled Outside the [place] in Last 30 Days - Family History Known Family History: Positive: Cardiac Disease, Hypertension, Other - HLD Negative: Diabetes - Social History Alcohol Use: None Hx Substance Use: No Substance Use Type: Reports: Marijuana Substance Use Comment - Amount & Last Used: at times Hx Tobacco Use: Yes Smoking Status (MU): Former Smoker Amount Used/How Often: 1.5 packs a day for 15 yrs Have You Smoked in the Last Year: Yes Review of Systems Positive: Fatigue. Negative: Fever, Chills Eyes: Negative ENT: Negative Positive: Chest Pain. Negative: Palpitations Respiratory: Negative Genitourinary: Negative Musculoskeletal: Negative Skin: Negative Neurological: Other - dizziness Psychological: Normal All Other Systems Reviewed And Are Negative: Yes Physical Exam Triage Information Reviewed: Yes Vital Signs On Initial Exam: Initial Vitals Temp Pulse Resp BP Pulse Ox 97.9 F 112 20 136/95 95 03/31/18 23:10 03/31/18 23:10 03/31/18 23:10 03/31/18 23:10 03/31/18 23:10 Vital Signs Reviewed: Yes Appearance: Positive: Well-Appearing - sweating, warm, well perfused, No Pain Distress, Obese Skin: Positive: Warm, Skin Color Reflects Adequate Perfusion Head/Face: Positive: Normal Head/Face Inspection Eyes: Positive: Normal, EOMI, ROSEANNE, Conjunctiva Clear. Negative: Conjunctiva Inflammed, Discharge ENT: Positive: Normal ENT inspection, Hearing grossly normal, Pharyngeal erythema - mild - mucosa somewhat dry, Muffled voice - pt reports this is baseline for him Neck: Positive: Supple, Nontender, No Lymphadenopathy Respiratory/Lung Sounds: Positive: Clear to Auscultation, Breath Sounds Present. Negative: Rales, Rhonchi, Wheezes Cardiovascular: Positive: Normal, RRR, S1, S2. Negative: Murmur, Rub, Leg Edema Left, Leg Edema Right Abdomen Description: Positive: No Organomegaly, Soft, Other: - epigastric TTP Bowel Sounds: Positive: Present Musculoskeletal: Positive: Normal, Strength/ROM Intact Neurological: Positive: Normal, Sensory/Motor Intact, Alert, Oriented to Person Place, Time, CN Intact II-III Psychiatric: Positive: Normal Diagnostics - Vital Signs Vital Signs Temp Pulse Resp BP Pulse Ox 04/01/18 01:54 96 04/01/18 01:53 101 143/91 04/01/18 01:52 87 137/99 03/31/18 23:10 97.9 F 112 20 136/95 95 - Laboratory Lab Results: Lab Results 04/01/18 04/01/18 04/01/18 Range/Units 01:01 01:01 01:01 WBC 11.5 H (3.5-10.8) 10^3/ul RBC 4.69 (4.0-5.4) 10^6/ul Hgb 14.5 (14.0-18.0) g/dl Hct 42 (42-52) % MCV 91 (80-94) fL MCH 31 (27-31) pg MCHC 34 (31-36) g/dl RDW 14 (10.5-15) % Plt Count 339 (150-450) 10^3/ul MPV 7.9 (7.4-10.4) um3 Neut % (Auto) 76.4 (38-83) % Lymph % (Auto) 16.4 L (25-47) % [place] % (Auto) 5.6 (0-7) % Eos % (Auto) 0.4 (0-6) % Baso % (Auto) 1.2 (0-2) % Absolute Neuts (auto) 8.8 H (1.5-7.7) 10^3/ul Absolute Lymphs (auto) 1.9 (1.0-4.8) 10^3/ul Absolute Monos (auto) 0.6 (0-0.8) 10^3/ul Absolute Eos (auto) 0 (0-0.6) 10^3/ul Absolute Basos (auto) 0.1 (0-0.2) 10^3/ul Absolute Nucleated RBC 0 10^3/ul Nucleated RBC % 0 INR (Anticoag Therapy) (0.77-1.02) APTT (26.0-36.3) seconds D-Dimer, Quantitative (Less Than 230) ng/mL Sodium 137 L (139-145) mmol/L Potassium 4.2 (3.5-5.0) mmol/L Chloride 105 (101-111) mmol/L Carbon Dioxide 26 (22-32) mmol/L Anion Gap 6 (2-11) mmol/L BUN 12 (6-24) mg/dL Creatinine 0.95 (0.67-1.17) mg/dL Est GFR ( Amer) 114.1 (>60) Est GFR (Non-Af Amer) 88.7 (>60) BUN/Creatinine Ratio 12.6 (8-20) Glucose 132 H (70-100) mg/dL Lactic Acid 0.9 (0.5-2.0) mmol/L Calcium 9.2 (8.6-10.3) mg/dL Magnesium 2.0 (1.9-2.7) mg/dL Total Bilirubin 0.50 (0.2-1.0) mg/dL AST 29 (13-39) U/L ALT 43 (7-52) U/L Alkaline Phosphatase 74 (34-104) U/L Troponin I 0.00 (<0.04) ng/mL B-Natriuretic Peptide ( - 100) pg/mL Total Protein 7.2 (6.4-8.9) g/dL Albumin 3.8 (3.2-5.2) g/dL Globulin 3.4 (2-4) g/dL Albumin/Globulin Ratio 1.1 (1-3) TSH 3.47 (0.34-5.60) mcIU/mL Urine Color Urine Appearance Urine pH (5-9) Ur Specific [place] (1.010-1.030) Urine Protein (Negative) Urine Ketones (Negative) Urine Blood (Negative) Urine Nitrate (Negative) Urine Bilirubin (Negative) Urine Urobilinogen (Negative) Ur Leukocyte Esterase (Negative) Urine Glucose (Negative) 04/01/18 04/01/18 04/01/18 Range/Units 01:01 01:01 01:45 WBC (3.5-10.8) 10^3/ul RBC (4.0-5.4) 10^6/ul Hgb (14.0-18.0) g/dl Hct (42-52) % MCV (80-94) fL MCH (27-31) pg MCHC (31-36) g/dl RDW (10.5-15) % Plt Count (150-450) 10^3/ul MPV (7.4-10.4) um3 Neut % (Auto) (38-83) % Lymph % (Auto) (25-47) % [place] % (Auto) (0-7) % Eos % (Auto) (0-6) % Baso % (Auto) (0-2) % Absolute Neuts (auto) (1.5-7.7) 10^3/ul Absolute Lymphs (auto) (1.0-4.8) 10^3/ul Absolute Monos (auto) (0-0.8) 10^3/ul Absolute Eos (auto) (0-0.6) 10^3/ul Absolute Basos (auto) (0-0.2) 10^3/ul Absolute Nucleated RBC 10^3/ul Nucleated RBC % INR (Anticoag Therapy) 0.97 (0.77-1.02) APTT 31.8 (26.0-36.3) seconds D-Dimer, Quantitative < 200 (Less Than 230) ng/mL Sodium (139-145) mmol/L Potassium (3.5-5.0) mmol/L Chloride (101-111) mmol/L Carbon Dioxide (22-32) mmol/L Anion Gap (2-11) mmol/L BUN (6-24) mg/dL Creatinine (0.67-1.17) mg/dL Est GFR ( Amer) (>60) Est GFR (Non-Af Amer) (>60) BUN/Creatinine Ratio (8-20) Glucose (70-100) mg/dL Lactic Acid (0.5-2.0) mmol/L Calcium (8.6-10.3) mg/dL Magnesium (1.9-2.7) mg/dL Total Bilirubin (0.2-1.0) mg/dL AST (13-39) U/L ALT (7-52) U/L Alkaline Phosphatase (34-104) U/L Troponin I (<0.04) ng/mL B-Natriuretic Peptide 25 ( - 100) pg/mL Total Protein (6.4-8.9) g/dL Albumin (3.2-5.2) g/dL Globulin (2-4) g/dL Albumin/Globulin Ratio (1-3) TSH (0.34-5.60) mcIU/mL Urine Color Yellow Urine Appearance Clear Urine pH 6.0 (5-9) Ur Specific [place] 1.014 (1.010-1.030) Urine Protein Negative (Negative) Urine Ketones Negative (Negative) Urine Blood Negative (Negative) Urine Nitrate Negative (Negative) Urine Bilirubin Negative (Negative) Urine Urobilinogen Negative (Negative) Ur Leukocyte Esterase Negative (Negative) Urine Glucose Negative (Negative) Result Diagrams: 04/01/18 01:01 04/01/18 01:01 Lab Statement: Any lab studies that have been ordered have been reviewed, and results considered in the medical decision making process. Re-Evaluation - Re-Evaluation First Eval Change: Improved - pt reports dizziness has dissipated since he's been here ( possibly improved with o2 NC 2L while sitting upright). No return of CP. Chest Pain Course/Dx - Course Course Of Treatment: Patient presents with brief sharp central chest pain around 2100 tonight. He reports this was followed by chest tightness and throat tightness when he tried to swallow. All of the symptoms have resolved even prior to arrival although he is now left with some dizziness he reports as "foggy head". Admits he's had these exact same sx in the past was diagnosed with vertigo. He took a meclizine prior to arrival which did not help. He also admits to sleep apnea and has a CPAP machine but this has not been fitted well for him yet. He does better when he sitting upright when he sleeps and worse when he is lying flat. Follows w/ Julio César. He is scheduled to meet with [employer] in an effort to adjust his lifestyle changes specifically nutrition as his vast neck circumference is most likely contributing to sleep apnea. Given his risk factors (HTN, morbid obesity, sleep apnea, h/o CHF, h/o smoking), he will be held for second troponin evaluation (1st trop normal and ECG sinus rhythm w/o ST elevations - initially tachy at 112 but improved with 02 ). Pulse ox was also low 90's on room air but improved to mid to high 90's with 02. Pt may require oxygen therapy if does not stabilize on RA. Signed out to Dr. Hunter in stable condition. - Diagnoses Provider Diagnoses: Chest pain Discharge - Sign-Out/Discharge Documenting (check all that apply): Sign-Out Patient Signing out patient TO: Silvino Hunter - Discharge Plan Condition: Improved - Billing Disposition and Condition Condition: IMPROVED
--- NOTE | 2018-04-01 04:41 | ED ---
Ray Champagne Rebecca, scribed for Silvino Hunter MD on 04/01/18 at 0432 . Progress - Progress Note Progress Note: Pt was signed out by Darby Altamirano, pending dispo, awaiting repeat troponin. Course/Dx - Course Course Of Treatment: Pt was signed out by Darby Altamirano, pending dispo, awaiting repeat troponin. Repeat troponin, taken 3 hours later, was negative (0.01). Pt will be D/C to home with Dx of chest pain with instructions to get an outpatient stress test done. - Diagnoses Provider Diagnoses: Chest pain Discharge - Sign-Out/Discharge Documenting (check all that apply): Discharge/Admit/Transfer - Discharge - Discharge Plan Condition: Stable Disposition: HOME Patient Education Materials: Chest Pain (ED) Referrals: Bharat Arias MD [Primary Care Provider] - 3 Days Additional Instructions: Get an outpatient stress test as soon as possible. RETURN TO ED FOR ANY NEW OR WORSENING SYMPTOMS. The documentation as recorded by the Ray graf Rebecca accurately reflects the service I personally performed and the decisions made by , Silvino Hunter MD.
[2018-04-01 04:49] VITALS: BP 151/91
--- NOTE | 2018-04-01 08:24 | RAD ---
HISTORY: Sternal chest pain with dizziness COMPARISONS: July 26, 2017 VIEWS: 1: frontal portable view of the chest at 1:08 AM FINDINGS: LINES AND TUBES: None. CARDIOMEDIASTINAL SILHOUETTE: The cardiomediastinal silhouette is normal for portable technique. PLEURA: The costophrenic angles are sharp. No pleural abnormalities are noted. LUNG PARENCHYMA: The lungs are clear. ABDOMEN: The upper abdomen is clear. There is no subphrenic gas. BONES AND SOFT TISSUES: No bone or soft tissue abnormalities are noted. IMPRESSION: NO ACTIVE CARDIOPULMONARY DISEASE.
== END 2018-04-01 04:48 | disposition home or self-care (01) ==
LOC: ED 23:04
DX: R07.89 Other chest pain (principal); I11.0 Hypertensive heart disease with heart failure; I50.9 Heart failure, unspecified; E66.01 Morbid (severe) obesity due to excess calories; G47.30 Sleep apnea, unspecified; Z79.899 Other long term (current) drug therapy; Z88.0 Allergy status to penicillin; Z87.891 Personal history of nicotine dependence; Z99.89 Dependence on other enabling machines and devices
CPT/HCPCS: 36415; 71045; 80053; 81003; 83605; 83735; 83880; 84443; 84484; 85025; 85379; 85610; 85730; 93005; 99284